=== PATIENT | female | born 1990 | race African-American/Black ===

== ENCOUNTER 2016-07-04 15:29 | Emergency (ER) | payer SELFPAY ==
[~2016-07-04] VITALS: Ht 160 cm; Wt 83.0 kg
[2016-07-04 16:00] VITALS: BP 112/71
== END 2016-07-04 17:25 | disposition home or self-care (01) ==
LOC: ER 16:32
DX: J02.9 Acute pharyngitis, unspecified (principal)
CPT/HCPCS: 99283

== ENCOUNTER 2016-08-18 23:25 | Emergency (ER) | payer MEDICAID ==
[~2016-08-18] VITALS: Ht 160 cm; Wt 84.0 kg
[2016-08-19] MEDS ORDERED: METRONIDAZOLE 250MG TABLET PO ONE (04:00)
[2016-08-19] MEDS ORDERED: CEFTRIAXONE SODIUM 250 MG/VIAL IV ONE (04:00)
[2016-08-19] MEDS ORDERED: AZITHROMYCIN 500 MG TABLET PO ONE (04:00)
[2016-08-19] MEDS ORDERED: ONDANSETRON HCL 4MG/2ML VIAL IV ONE (04:00)
[2016-08-19 04:07] LABS: CLARITY URINE CLEAR (CLEAR); COLOR URINE YELLOW (YELLOW); GLUCOSE URINE NEGATIVE (NEGATIVE); KETONES URINE NEGATIVE (NEGATIVE); LEUKOCYTE ESTERASE URINE 1+ (NEGATIVE); NITRITE URINE NEGATIVE (NEGATIVE); OCCULT BLOOD URINE NEGATIVE (NEGATIVE); PROTEIN URINE NEGATIVE (NEGATIVE); SPECIFIC GRAVITY URINE 1.017 (1.005-1.030); UROBILINOGEN URINE 0.2 E.U./dL (0.2-1.0)
[2016-08-19 04:13] LABS: EOSINOPHILS % 3.9 % (0.0-5.0); HEMATOCRIT. 35.6 % (36.0-48.0); HEMOGLOBIN. 11.8 g/dL (12.0-16.0); MEAN CORPUSCULAR HEMOGLOBIN 27.7 pg (28.0-32.0); MEAN CORPUSCULAR VOLUME 83.7 fL (81.0-99.0); MEAN PLATELET VOLUME 8.7 fl (7.4-10.4); MONOCYTES % 9.6 % (2.0-8.0); NEUTROPHILS % 46.5 % (40.0-76.0); PLATELET 279 x1000/uL (130-400); RED BLOOD CELL COUNT 4.26 mill/uL (4.2-5.4); RED CELL DISTRIBUTION WIDTH 13.5 % (11.6-14.6)
[2016-08-19 04:17] LABS: PROTHROMBIN TIME 10.6 sec
[2016-08-19 04:24] LABS: CARBON DIOXIDE 32 mEq/L (21-32); CHLORIDE 104 mEq/L (98-107)
[2016-08-19 04:25] LABS: HCG SCREEN NEGATIVE
[2016-08-19] MEDS ORDERED: METRONIDAZOLE 500MG TABLET PO NR (04:30)
[2016-08-19] MEDS ORDERED: CEFTRIAXONE 250 MG in SODIUM CHLORIDE 0.9% 50 ML IV NR (04:45)
[2016-08-19 06:15] VITALS: BP 107/56
== END 2016-08-19 06:48 | disposition home or self-care (01) ==
LOC: ER 08-19 04:44
DX: R10.30 Lower abdominal pain, unspecified (principal); N89.8 Other specified noninflammatory disorders of vagina
CPT/HCPCS: 36415; 80053; 81001; 83690; 84703; 85025; 85610; 96365; 96375; 99284; J0696; J2405; Z7610

== ENCOUNTER 2016-08-31 18:55 | Emergency (ER) | payer MEDICAID ==
[~2016-08-31] VITALS: Ht 160 cm; Wt 82.0 kg
[2016-08-31] MEDS ORDERED: IBUPROFEN 600MG TABLET PO ONE (23:00)
[2016-09-01 00:15] VITALS: BP 100/55
== END 2016-09-01 01:09 | disposition home or self-care (01) ==
LOC: ER 18:55
DX: M54.5 Low back pain (principal); M54.2 Cervicalgia; J45.909 Unspecified asthma, uncomplicated; W10.8XXA Fall (on) (from) other stairs and steps, initial encounter; Y93.89 Activity, other specified; Y92.018 Other place in single-family (private) house as the place of occurrence of the external cause
CPT/HCPCS: 72040; 72100; 99284; Z7610

== ENCOUNTER 2016-11-21 10:38 | Emergency (ER) | payer MEDICAID, OTHER ==
[~2016-11-21] VITALS: Ht 157.5 cm; Wt 82.0 kg
[2016-11-21 15:00] VITALS: BP 106/71
[2016-11-21] MEDS ORDERED: TETRACAINE 0.5% OPHTH DROPS 4ML LEFTEYE ONE (15:30)
[2016-11-21] MEDS ORDERED: FLUORESCEIN SODIUM 1MG/STRIP LEFTEYE ONE (15:30)
== END 2016-11-21 16:10 | disposition home or self-care (01) ==
LOC: ER 10:38
DX: S05.02XA Injury of conjunctiva and corneal abrasion without foreign body, left eye, initial encounter (principal); J45.909 Unspecified asthma, uncomplicated; X58.XXXA Exposure to other specified factors, initial encounter; Y93.89 Activity, other specified; Y92.89 Other specified places as the place of occurrence of the external cause; Y99.8 Other external cause status
CPT/HCPCS: 99283; Z7610

== ENCOUNTER 2017-09-12 18:17 | Emergency (ER) | payer SELFPAY ==
[~2017-09-12] VITALS: Ht 157.5 cm; Wt 86.0 kg
[2017-09-12] MEDS ORDERED: PREDNISONE 20MG TABLET PO STA (18:35)
[2017-09-12] MEDS ORDERED: IPRATROPIUM BROMIDE (0.02%) 0.5MG/2.5ML NEB HHN STA (18:35)
[2017-09-12] MEDS ORDERED: ALBUTEROL (0.083%) 2.5MG/3ML NEB HHN STA (18:35)
[2017-09-12] MEDS ORDERED: IBUPROFEN 600MG TABLET PO ONE (21:15)
[2017-09-12 21:44] VITALS: BP 111/64
== END 2017-09-12 21:46 | disposition home or self-care (01) ==
LOC: ER 21:21
DX: B34.9 Viral infection, unspecified (principal); J45.909 Unspecified asthma, uncomplicated
CPT/HCPCS: 94640; 99283; J7512; J7611